=== PATIENT | female | born 1990 | race African-American/Black ===

== ENCOUNTER 2018-06-06 14:32 | Emergency (ER) | payer MEDICAID ==
[~2018-06-06] VITALS: Ht 157.5 cm; Wt 113.0 kg
[2018-06-06 15:27] VITALS: BP 159/97
== END 2018-06-06 19:10 | disposition home or self-care (01) ==
LOC: ER 18:10
DX: K08.89 Other specified disorders of teeth and supporting structures (principal)
CPT/HCPCS: 81025; 99283

== ENCOUNTER 2019-12-24 16:45 | Inpatient (IN) | payer MEDICAID ==
[~2019-12-24] VITALS: Ht 167.6 cm; Wt 94.3 kg
[2019-12-24] MEDS ORDERED: ONDANSETRON 4MG ODT PO ONE (17:45)
[2019-12-24] MEDS ORDERED: TRAMADOL 50MG TABLET PO ONE (17:45)
[2019-12-24 18:00] LABS: BASOPHILS % 0.5 % (0.0-2.0); EOSINOPHILS % 1.1 % (0.0-5.0); HEMOGLOBIN. 12.9 g/dL (12.0-16.0); LYMPHOCYTES % 22.3 % (20.0-50.0); MEAN CORPUSCULAR HEMOGLOBIN 27.2 pg (28.0-32.0); MEAN CORPUSCULAR VOLUME 82.1 fL (81.0-99.0); MEAN PLATELET VOLUME 7.5 fl (7.4-10.4); MONOCYTES % 8.7 % (2.0-8.0); NEUTROPHILS % 67.4 % (40.0-76.0); PLATELET 389 x1000/uL (130-400); RED BLOOD CELL COUNT 4.75 mill/uL (4.2-5.4); RED CELL DISTRIBUTION WIDTH 15.5 % (11.6-14.6)
[2019-12-24 18:02] LABS: CLARITY URINE CLOUDY (CLEAR); COLOR URINE DARK YELLOW (YELLOW); KETONES URINE 2+ (NEGATIVE); LEUKOCYTE ESTERASE URINE 1+ (NEGATIVE); NITRITE URINE NEGATIVE (NEGATIVE); OCCULT BLOOD URINE NEGATIVE (NEGATIVE); PH URINE 6.5 (4.5-8.0); PROTEIN URINE 1+ (NEGATIVE); SPECIFIC GRAVITY URINE 1.038 (1.005-1.030)
[2019-12-24 18:05] LABS: CHLORIDE 103 mEq/L (98-107)
[2019-12-24 18:08] LABS: HCG SCREEN NEGATIVE
[2019-12-24 18:10] LABS: ETHANOL BLOOD < 10 mg/dL
[2019-12-24 18:13] LABS: *AMPHETAMINES SCREEN URINE NEGATIVE (NEGATIVE); *BARBITURATES SCREEN URINE NEGATIVE (NEGATIVE); *BENZODIAZEPINES SCREEN URINE NEGATIVE (NEGATIVE); *COCAINE SCREEN URINE NEGATIVE (NEGATIVE); CANNABINOID URINE SCREEN NEGATIVE (NEGATIVE); METHADONE URINE SCREEN NEGATIVE (NEGATIVE); OPIATES URINE SCREEN NEGATIVE (NEGATIVE); PHENCYCLIDINE URINE SCREEN NEGATIVE (NEGATIVE)
[2019-12-24] MEDS ORDERED: ONDANSETRON HCL 4MG/2ML INJ IV STA (19:32)
[2019-12-24] MEDS ORDERED: MORPHINE SULFATE 4 MG/ML CPJ (NOT FOR IM USE) IV STA (19:32)
[2019-12-24] MEDS ORDERED: SODIUM CHLORIDE 0.9% 1,000 ML IV ONE ×2 (19:32→21:26)
[2019-12-24] MEDS ORDERED: ONDANSETRON HCL 4MG/2ML INJ IV ONE (21:30)
[2019-12-24] MEDS ORDERED: FENTANYL CITRATE/PF 50MCG/ML 2ML VIAL IV ONE (21:30)
[2019-12-25] MEDS: MORPHINE SULFATE 2 MG/ML CPJ (NOT FOR IM USE) IV PRN ×4 (01:51→12:34)
[2019-12-25] MEDS ORDERED: ONDANSETRON HCL 4MG/2ML INJ IV PRN (09:00)
[2019-12-25] MEDS ORDERED: HYDROCODONE/ACETAMINOPHEN 5/325MG TABLET PO PRN (09:00)
[2019-12-25 12:06] LABS: HEPATITIS B SURFACE ANTIGEN NEGATIVE
[2019-12-25 12:36] LABS: HEPATITIS A AB IGM NEGATIVE (NEGATIVE)
[2019-12-25 12:58] VITALS: BP 116/51
[2019-12-25] MEDS: DEXT 5%/0.45% NACL 1000ML 1,000 ML IV SCH (13:50)
[2019-12-25] MEDS: CEFTRIAXONE 1 G PREMIX 50 ML IV SCH (13:50)
[2019-12-25] MEDS: HYDROMORPHONE HCL/PF 2MG/ML CPJ IV PRN ×2 (15:09→20:42)
[2019-12-25 20:00] VITALS: BP 122/67
[2019-12-25 22:00] VITALS: BP 112/57
[2019-12-26] MEDS: DEXT 5%/0.45% NACL 1000ML 1,000 ML IV SCH ×2 (00:19→09:25)
[2019-12-26] MEDS: HYDROMORPHONE HCL/PF 2MG/ML CPJ IV PRN ×4 (00:51→14:17)
[2019-12-26 04:00] VITALS: BP 110/58
[2019-12-26 07:24] LABS: BASOPHILS % 0.3 % (0.0-2.0); EOSINOPHILS % 1.6 % (0.0-5.0); HEMATOCRIT. 34.6 % (36.0-48.0); HEMOGLOBIN. 11.6 g/dL (12.0-16.0); LYMPHOCYTES % 19.4 % (20.0-50.0); MEAN CORPUSCULAR HEMOGLOBIN 27.2 pg (28.0-32.0); MEAN CORPUSCULAR VOLUME 81.3 fL (81.0-99.0); MEAN PLATELET VOLUME 7.7 fl (7.4-10.4); MONOCYTES % 8.4 % (2.0-8.0); NEUTROPHILS % 70.3 % (40.0-76.0); PLATELET 352 x1000/uL (130-400); RED BLOOD CELL COUNT 4.25 mill/uL (4.2-5.4); RED CELL DISTRIBUTION WIDTH 15.4 % (11.6-14.6)
[2019-12-26 07:50] LABS: CHLORIDE 103 mEq/L (98-107)
[2019-12-26 08:00] VITALS: BP 124/62
[2019-12-26] MEDS: CEFTRIAXONE 1 G PREMIX 50 ML IV SCH (09:29)
[2019-12-26 12:00] VITALS: BP 125/62
[2019-12-26] MEDS ORDERED: POTASSIUM CHLORIDE 20MEQ TABLET SR PO NR (12:30)
[2019-12-26 16:00] VITALS: BP 122/73
[2019-12-26 17:31] VITALS: BP 122/73
== END 2019-12-26 19:40 | disposition home or self-care (01) | DRG 282 ==
LOC: ER 16:45 → 7WST 21:19 → ENRESERV 12-25 08:27 → CANRESERV 12-25 08:27 → ENRESERV 12-25 08:44
PROVIDERS: ADMIT Internal Medicine; ATTEND Internal Medicine
DX: K85.90 Acute pancreatitis without necrosis or infection, unspecified (principal); K80.50 Calculus of bile duct without cholangitis or cholecystitis without obstruction; E66.9 Obesity, unspecified; R74.0 Nonspecific elevation of levels of transaminase and lactic acid dehydrogenase [LDH]; N39.0 Urinary tract infection, site not specified; Z90.49 Acquired absence of other specified parts of digestive tract; Z97.5 Presence of (intrauterine) contraceptive device; Z68.33 Body mass index [BMI] 33.0-33.9, adult
CPT/HCPCS: 36415; 74176; 76700; 80048; 80053; 80305; 80320; 81003; 84075; 84450; 84460; 84478; 84703; 85025; 86705; 86709; 86803; 87340; 96374; 99285; J0696; J1170; J2270; J2405; J3010; J7030; Q0162; G0480

== ENCOUNTER 2020-02-20 19:14 | Inpatient (IN) | payer MEDICAID ==
[~2020-02-20] VITALS: Ht 157.5 cm; Wt 111.1 kg
[2020-02-20] MEDS ORDERED: KETOROLAC 60MG/2ML VIAL IM STA (20:29)
[2020-02-20 20:37] LABS: CLARITY URINE CLEAR (CLEAR); COLOR URINE DARK YELLOW (YELLOW); KETONES URINE TRACE (NEGATIVE); LEUKOCYTE ESTERASE URINE 2+ (NEGATIVE); NITRITE URINE NEGATIVE (NEGATIVE); OCCULT BLOOD URINE NEGATIVE (NEGATIVE); PH URINE 5.5 (4.5-8.0); PROTEIN URINE 1+ (NEGATIVE); SPECIFIC GRAVITY URINE 1.031 (1.005-1.030)
[2020-02-20 20:44] LABS: BASOPHILS % 0.7 % (0.0-2.0); EOSINOPHILS % 1.3 % (0.0-5.0); HEMATOCRIT. 36.4 % (36.0-48.0); HEMOGLOBIN. 12.3 g/dL (12.0-16.0); LYMPHOCYTES % 27.1 % (20.0-50.0); MEAN CORPUSCULAR HEMOGLOBIN 27.9 pg (28.0-32.0); MEAN CORPUSCULAR VOLUME 82.6 fL (81.0-99.0); MEAN PLATELET VOLUME 7.8 fl (7.4-10.4); MONOCYTES % 9.9 % (2.0-8.0); PLATELET 353 x1000/uL (130-400); RED BLOOD CELL COUNT 4.41 mill/uL (4.2-5.4); RED CELL DISTRIBUTION WIDTH 14.2 % (11.6-14.6)
[2020-02-20 20:53] LABS: CHLORIDE 106 mEq/L (98-107)
[2020-02-20] MEDS ORDERED: NITROFURANTOIN 100MG M/M CAPSULE PO ONE (21:30)
[2020-02-20] MEDS ORDERED: MORPHINE SULFATE 10 MG/ML CPJ IM ONE (22:30)
[2020-02-21] MEDS ORDERED: ONDANSETRON HCL 4MG/2ML INJ IV PRN ×2 (03:30→09:00)
[2020-02-21] MEDS: MORPHINE SULFATE 2 MG/ML CPJ (NOT FOR IM USE) IV PRN ×3 (03:43→14:40)
[2020-02-21 04:00] VITALS: BP 140/91
[2020-02-21] MEDS: CEFTRIAXONE 1 G PREMIX 50 ML IV SCH (04:24)
[2020-02-21] MEDS: SODIUM CHL 0.45% + KCL 20MEQ/L 1,000 ML IV SCH ×3 (04:24→20:28)
[2020-02-21 04:58] VITALS: BP 140/91
[2020-02-21 08:23] VITALS: BP 121/72
[2020-02-21] MEDS ORDERED: ACETAMINOPHEN 325MG TABLET PO PRN (09:00)
[2020-02-21] MEDS: PANTOPRAZOLE SODIUM 40 MG/VIAL IV SCH (09:04)
[2020-02-21 11:06] LABS: BASOPHILS % 0.7 % (0.0-2.0); EOSINOPHILS % 2.1 % (0.0-5.0); HEMATOCRIT. 36.4 % (36.0-48.0); HEMOGLOBIN. 11.8 g/dL (12.0-16.0); LYMPHOCYTES % 26.6 % (20.0-50.0); MEAN CORPUSCULAR HEMOGLOBIN 27.1 pg (28.0-32.0); MEAN CORPUSCULAR VOLUME 83.4 fL (81.0-99.0); MEAN PLATELET VOLUME 8.1 fl (7.4-10.4); MONOCYTES % 10.4 % (2.0-8.0); NEUTROPHILS % 60.2 % (40.0-76.0); PLATELET 329 x1000/uL (130-400); RED BLOOD CELL COUNT 4.37 mill/uL (4.2-5.4); RED CELL DISTRIBUTION WIDTH 14.8 % (11.6-14.6)
[2020-02-21 11:13] LABS: CHLORIDE 107 mEq/L (98-107)
[2020-02-21 11:33] VITALS: BP 114/53
[2020-02-21 13:32] LABS: *COCAINE SCREEN URINE NEGATIVE (NEGATIVE); METHADONE URINE SCREEN NEGATIVE (NEGATIVE); OPIATES URINE SCREEN NEGATIVE (NEGATIVE)
[2020-02-21 13:33] LABS: *AMPHETAMINES SCREEN URINE NEGATIVE (NEGATIVE)
[2020-02-21 13:35] LABS: *BENZODIAZEPINES SCREEN URINE NEGATIVE (NEGATIVE)
[2020-02-21 13:37] LABS: *BARBITURATES SCREEN URINE NEGATIVE (NEGATIVE)
[2020-02-21 13:41] LABS: PHENCYCLIDINE URINE SCREEN NEGATIVE (NEGATIVE)
[2020-02-21 13:42] LABS: CANNABINOID URINE SCREEN NEGATIVE (NEGATIVE)
[2020-02-21 16:10] VITALS: BP 98/49
[2020-02-21 20:00] VITALS: BP 111/56
[2020-02-21] MEDS: HYDROMORPHONE HCL/PF 2MG/ML CPJ IV PRN (20:19)
[2020-02-22] VITALS: BP 116/56
[2020-02-22] MEDS: HYDROMORPHONE HCL/PF 2MG/ML CPJ IV PRN ×3 (03:04→19:56)
[2020-02-22] MEDS: CEFTRIAXONE 1 G PREMIX 50 ML IV SCH (03:05)
[2020-02-22 04:00] VITALS: BP 111/50
[2020-02-22 06:08] LABS: PARTIAL THROMBOPLASTIN TIME 28.7 sec (23.4-31.0); PROTHROMBIN TIME 11.3 sec (9.6-11.0)
[2020-02-22 06:11] LABS: BASOPHILS % 0.4 % (0.0-2.0); EOSINOPHILS % 2.2 % (0.0-5.0); HEMATOCRIT. 34.1 % (36.0-48.0); HEMOGLOBIN. 11.5 g/dL (12.0-16.0); LYMPHOCYTES % 36.3 % (20.0-50.0); MEAN CORPUSCULAR HEMOGLOBIN 28.1 pg (28.0-32.0); MEAN CORPUSCULAR VOLUME 82.9 fL (81.0-99.0); MEAN PLATELET VOLUME 7.7 fl (7.4-10.4); MONOCYTES % 7.4 % (2.0-8.0); NEUTROPHILS % 53.7 % (40.0-76.0); PLATELET 322 x1000/uL (130-400); RED BLOOD CELL COUNT 4.11 mill/uL (4.2-5.4); RED CELL DISTRIBUTION WIDTH 14.7 % (11.6-14.6)
[2020-02-22 06:20] LABS: CHLORIDE 106 mEq/L (98-107)
[2020-02-22 08:00] VITALS: BP 116/72
[2020-02-22] MEDS: PANTOPRAZOLE SODIUM 40 MG/VIAL IV SCH (09:57)
[2020-02-22] MEDS: SODIUM CHL 0.45% + KCL 20MEQ/L 1,000 ML IV SCH (11:58)
[2020-02-22 12:00] VITALS: BP 128/78
[2020-02-22] MEDS ORDERED: SIMETHICONE 40 MG/0.6 ML 30ML ONE (13:14)
[2020-02-22] MEDS ORDERED: IOHEXOL-300 100 ML BOTTLE ONE (13:14)
[2020-02-22] MEDS ORDERED: NEOSTIGMINE METHYLSULFATE 1MG/ML 10 ML VIAL ONE (15:49)
[2020-02-22] MEDS ORDERED: FENTANYL CITRATE/PF 50MCG/ML 2ML VIAL ONE ×2 (15:49→17:42)
[2020-02-22] MEDS ORDERED: ROCURONIUM BROMIDE 10MG/ML VIAL 5ML IV ONE (15:49)
[2020-02-22] MEDS ORDERED: PROPOFOL 200MG/20ML VIAL IV ONE (15:49)
[2020-02-22] MEDS ORDERED: MIDAZOLAM HCL 2 MG/2 ML VIAL ONE (15:50)
[2020-02-22] MEDS ORDERED: GLYCOPYRROLATE 0.2 MG/ML 2ML VIAL ONE ×2 (15:50→17:43)
[2020-02-22] MEDS ORDERED: ONDANSETRON HCL 4MG/2ML INJ ONE (16:08)
[2020-02-22] MEDS ORDERED: DEXAMETHASONE 4MG/ML 1ML VIAL ONE (16:08)
[2020-02-22] MEDS ORDERED: LIDOCAINE HCL/PF 1% 10 MG/ML 5ML VIAL ONE (16:09)
[2020-02-22] MEDS ORDERED: MEPERIDINE HCL/PF 25MG/ML CPJ IV PRN (16:15)
[2020-02-22] MEDS ORDERED: ONDANSETRON HCL 4MG/2ML INJ IV PRN (16:15)
[2020-02-22] MEDS ORDERED: LABETALOL 5MG/ML SYR 20 MG/4 ML SYRINGE IV PRN (16:15)
[2020-02-22] MEDS ORDERED: HYDROMORPHONE HCL/PF 2MG/ML CPJ IV PRN (16:15)
[2020-02-22 20:00] VITALS: BP 149/93
[2020-02-22] MEDS: MORPHINE SULFATE 2 MG/ML CPJ (NOT FOR IM USE) IV PRN (23:17)
[2020-02-23] VITALS: BP 126/72
[2020-02-23] MEDS: HYDROMORPHONE HCL/PF 2MG/ML CPJ IV PRN ×2 (02:04→09:10)
[2020-02-23] MEDS: CEFTRIAXONE 1 G PREMIX 50 ML IV SCH (03:37)
[2020-02-23 04:00] VITALS: BP 116/64
[2020-02-23 08:00] VITALS: BP 117/63
[2020-02-23] MEDS: PANTOPRAZOLE SODIUM 40 MG/VIAL IV SCH (08:40)
[2020-02-23 10:13] VITALS: BP 117/63
[2020-02-23] MEDS ORDERED: HYDR-4001 MT (11:18)
[2020-02-23 12:00] VITALS: BP 146/70
== END 2020-02-23 13:45 | disposition home or self-care (01) ==
LOC: ER 19:14 → 6EST 23:50 → ENRESERV 02-21 01:39
PROVIDERS: ADMIT Internal Medicine; ATTEND Internal Medicine
PROC: 0FC98ZZ Extirpation of Matter from Common Bile Duct, Via Natural or Artificial Opening Endoscopic (ICD-10-PCS; principal; 2020-02-22)
PROC: 0F798DZ Dilation of Common Bile Duct with Intraluminal Device, Via Natural or Artificial Opening Endoscopic (ICD-10-PCS; 2020-02-22)
PROC: BF131ZZ Fluoroscopy of Gallbladder and Bile Ducts using Low Osmolar Contrast (ICD-10-PCS; 2020-02-22)
DX: K80.51 Calculus of bile duct without cholangitis or cholecystitis with obstruction (principal); Z68.41 Body mass index [BMI] 40.0-44.9, adult; E66.9 Obesity, unspecified; E87.6 Hypokalemia; N39.0 Urinary tract infection, site not specified; R79.89 Other specified abnormal findings of blood chemistry; R74.0 Nonspecific elevation of levels of transaminase and lactic acid dehydrogenase [LDH]; Z90.49 Acquired absence of other specified parts of digestive tract; Z87.440 Personal history of urinary (tract) infections; Z71.3 Dietary counseling and surveillance
CPT/HCPCS: 36415; 74176; 74181; 74328; 80048; 80053; 80305; 81003; 85025; 96372; 99285; C1726; C1769; C2625; C9113; J0696; J1100; J1170; J1885; J2250; J2270; J2405; J2704; J2710; J3010; J3480; J3490; Q9967